=== PATIENT | male | born 1975 | race Caucasian/White ===

== ENCOUNTER 2024-03-18 11:48 | Emergency (ER) | payer SELFPAY ==
--- NOTE | 2024-03-18 11:53 | XR_ITS ---
WS: [id number] Exam: XR wrist RT min 3V* [id number] Date/Time of Exam: 03/18/2024 11:53 AM Reason For Exam: injury No acute fracture or dislocation. The joints are preserved. Soft tissues are unremarkable. XR/XR wrist RT min 3V* [id number] IMPRESSION: 1. No fracture.
--- NOTE | 2024-03-18 11:53 | XR_ITS ---
WS: [id number] Exam: XR hand RT min 3V* [id number] Date/Time of Exam: 03/18/2024 11:53 AM Reason For Exam: injury No acute fracture or dislocation. 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 Old fracture deformities of the fourth and fifth metacarpals. 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 No soft tissue foreign bodies. Degenerative change at the articulation of the scaphoid and greater and lesser multangular. XR/XR hand RT min 3V* [id number] IMPRESSION: 1. No acute fracture. 2. 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
[2024-03-18 11:54] VITALS: BP 130/87; PULSE 59; RESP 18; TEMP 36.8; O2SAT 100; BMI 29.0
--- NOTE | 2024-03-18 11:57 | W.ED.UPPEXIN ---
HPI - Extremity Injury (Upper) General: Chief Complaint: Extremity Injury, Upper Stated Complaint: right wrist swelling Time Seen by Provider: 03/18/24 11:50 Source: patient and police Mode of arrival: ambulatory Limitations: no limitations History of Present Illness: 48-year-old male is here with police states he was arrested last night he states he twisted his right arm while resting he is having right hand and wrist pain. States pain sharp in nature rates it a 6 out of 10 worse with palpation denies any other injuries denies any elbow or shoulder pain Associated symptoms: Denies neck pain Related Data Home Medications Medication Instructions Recorded Confirmed No Known Home Medications 12/31/22 12/31/22 Allergies Allergy/AdvReac Type Severity Reaction Status Date / Time No Known Allergies Allergy Verified 12/31/22 18:02 Review of Systems Const: Denies: fever(s), chills, body aches or change in appetite ENMT: Denies: throat pain or dental pain Card: Denies: chest pain Resp: Denies: dyspnea GI: Denies: abdominal pain, nausea, vomiting or diarrhea Musc: Reports: extremity pain; Denies: neck pain or back pain Skin/Breast: Denies: rash Neuro: Denies: headache(s) Physical Exam Const: COMMON NORMALS: no acute distress, patient oriented x3 and healthy appearing HENMT: COMMON NORMALS: normocephalic and atraumatic HEAD & SCALP: normocephalic and atraumatic Neck/C-Spine: COMMON NORMALS: full ROM and supple Chest: COMMONS NORMALS: normal inspection of the chest Resp: COMMON NORMALS: normal respiratory effort Cardio: COMMON NORMALS: regular rate, regular rhythm and No murmurs present (Cardio) RATE: regular rate RHYTHM: regular rhythm Extremity: COMMON NORMALS: full ROM NARRATIVE EXTREMITY EXAM: Tenderness over right wrist and hand no obvious deformity Neuro: COMMON NORMALS: patient oriented x3, moves all extremities and no focal motor deficits Psych: COMMON NORMALS: mental status grossly normal, Normal thought process present and cooperative THOUGHT PROCESS: Normal thought process present Skin: COMMON NORMALS: no rashes or lesions noted and no wounds GENERAL SKIN EXAM: no rashes or lesions noted Course Vital Signs: Vital signs: Vital Signs Temperature 98.3 F 03/18/24 11:54 Pulse Rate 59 L 03/18/24 11:54 Respiratory Rate 18 03/18/24 11:54 Blood Pressure 130/87 03/18/24 11:54 Pulse Oximetry 100 03/18/24 11:54 Oxygen Delivery Me thod Room Air 03/18/24 11:54 MDM - Extremity Injury (Upper) Medical Decision Making Patient presents with a wrist sprain x-ray shows no fractures he is well-appearing stable for discharge. Medical Records I reviewed the patient's medical records. Lab Data Radiology Impressions Hand X-Ray 03/18/24 11:53 IMPRESSION: 1. No acute fracture. 2. 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 Wrist X-Ray 03/18/24 11:53 IMPRESSION: 1. No fracture. All radiology interpretation(s) finalized by discharge Discharge Plan Discharge Patient Disposition: Home Clinical Impression: Right wrist sprain Condition: Stable Prescriptions: No Action No Known Home Medications Discharge Orders: Discharge ED (Routine); Ordered 03/18/24 Ordered By: Zoe Salazar Discharge Diet: Advance as tolerated Discharge Activity: Resume usual activity Patient Instructions: Wrist Sprain (ED) Coding Level of Care Code ED Track Template Maker for Nuno Garcia
[2024-03-18 12:45] VITALS: BP 116/78; PULSE 76; RESP 16; TEMP 36.8; O2SAT 99
== END 2024-03-18 12:46 | disposition home or self-care (01) ==
PROVIDERS: Emergency Provider Emergency Medicine
DX: S63.501A Unspecified sprain of right wrist, initial encounter (principal); X50.1XXA Overexertion from prolonged static or awkward postures, initial encounter
CPT/HCPCS: 73110; 73130; 99283

== ENCOUNTER → 2024-06-14 11:31 | Outpatient (BNVA) | payer SELFPAY | DX: I10 Essential (primary) hypertension (principal) | CPT/HCPCS: 80053; 85025 ==